=== PATIENT | female | born 1990 | race Two or more races ===

== ENCOUNTER 2017-05-25 14:21 | Emergency (ER) | payer MEDICAID ==
[~2017-05-25] VITALS: Ht 160 cm; Wt 57.6 kg
[~2017-05-25 14:21] MED LIST: ACETAMINOPHEN325 M1 ORAL; ACYCLOVIR400 MG ORAL; ALBUTEROL SULF8.5 GM INH; AMOXICILLIN500 MG ORAL; BENADRYL25 M3 PO; COLACE100 MG ORAL; NKM; PROMETHAZINE-C118 M1 ORAL; TRIAMCINOLONE A60 ML TP
[2017-05-25 14:39] VITALS: BP 116/75
--- NOTE | 2017-05-25 15:09 | Emergency Room Report ---
History of Present Illness General Chief Complaint: General Complaint Source: Patient Present Illness HPI 26-year-old female presents to the emergency department complaining of pressure in the left maxillary and frontal sinus in addition to nasal congestion, numbness feeling over the sinuses or the left side, and tightness in the upper back and neck. Patient denies fevers or chills. Patient denies recent illness denies cough. Patient reports recent dental procedure on the right side of the upper mouth. Patient denies acute onset of symptoms. Patient also reports pressure and popping in the left ear. Patient states that sometimes the pressure in the sinuses will clear however majority of the times she is congested. denies imbalance, tinnitus, or jaw pain. Denies purulent drainage, denies trauma. Denies CP, Palpitations, LOC, AMS, dizziness, Changes in Vision, Sensation, paresthesias, or a sudden severe headache. Allergies: Coded Allergies: No Known Allergies (Unverified , 10/08/14) Patient History Past Medical History: see triage record Past Surgical History: none Pertinent Family History: none Last Menstrual Period: 05/07/17 Now: No Immunizations: UTD Reviewed Nursing Documentation: PMH: Agreed, PSxH: Agreed Nursing Documentation-PMH Past Medical History: No Stated History Review of Systems All Other Systems: negative except mentioned in HPI Physical Exam Vital Signs Date Time Temp Pulse Resp B/P Pulse Ox O2 Delivery O2 Flow Rate FiO2 05/25/17 14:39 97.9 78 16 116/75 100 Room Air Sp02 EP Interpretation: reviewed, normal General Appearance: no apparent distress, alert, GCS 15, non-toxic Head: normocephalic, atraumatic Eyes: bilateral eye PERRL, bilateral eye normal inspection ENT: hearing grossly normal, normal pharynx, no angioedema, normal voice, TMs + canals normal, nasal congestion, other - no teeth tenderness to percussion, Neck: full range of motion, no meningismus, no bony tend, supple/symm/no masses Respiratory: chest non-tender, lungs clear, normal breath sounds, speaking full sentences Cardiovascular #1: regular rate, rhythm, no edema Musculoskeletal: back normal, gait/station normal, normal range of motion, non- tender Neurologic: alert, oriented x3, responsive, motor strength/tone normal, sensory intact, cerebellar normal, normal gait, speech normal, no pronator, other - no facial droop Psychiatric: judgement/insight normal, memory normal, mood/affect normal Skin: normal color, no rash, warm/dry, well hydrated Medical Decision Making PA Attestation Dr. Benoit is my supervising Physician whom patient management has been discussed with. Diagnostic Impression: Primary Impression: Encounter for medical screening examination Additional Impressions: Sinus congestion Neck strain Qualified Codes: S16.1XXA - Strain of muscle, fascia and tendon at neck level , initial encounter ER Course 26-year-old female presents to the emergency department complaining of pressure in the left maxillary and frontal sinus in addition to nasal congestion, numbness feeling over the sinuses or the left side, and tightness in the upper back and neck. Patient denies fevers or chills. Patient denies recent illness denies cough. Patient reports recent dental procedure on the right side of the upper mouth. Patient denies acute onset of symptoms. Patient also reports pressure and popping in the left ear. Patient states that sometimes the pressure in the sinuses will clear however majority of the times she is congested. Denies purulent drainage, denies trauma. Denies CP, Palpitations, LOC, AMS, dizziness, Changes in Vision, Sensation, paresthesias, or a sudden severe headache. Ddx considered but are not limited to URI, pneumonia, PE, strep pharyngitis, meningitis, sinusitis, dental abscess. Vital signs: Pt. is afebrile, the remaining VS are WNL H&PE are most consistent with nasal congestion- no meningeal signs, oropharynx is not involved, no evidence of bacterial infection at this time. , no teeth tenderness to percussion, ORDERS: none required at this time, the diagnosis is clinical ED INTERVENTIONS: None required at this time. I do not suspect an emergent condition at this time. with current presentation pt. is stable for close outpatient follow up. D/w pt. to return to ED with worsening or new symptoms. DISCHARGE: At this time pt. is stable for d/c to home. Will provide printed patient care instructions, and any necessary prescriptions. Care plan and follow up instructions have been discussed with the patient prior to discharge. Last Vital Signs Date Time Temp Pulse Resp B/P Pulse Ox O2 Delivery O2 Flow Rate FiO2 05/25/17 14:39 97.9 78 16 116/75 100 Room Air Disposition: HOME, SELF-CARE Condition: Stable Scripts Pseudoephedrine Hcl* (NEXAFED*) 30 Mg Tablet 30 MG ORAL Q6H Y for congestion for 3 Days, #12 TAB Prov: So Bryson 05/25/17 Ibuprofen* (MOTRIN*) 600 Mg Tablet 600 MG ORAL THREE TIMES A DAY, #20 TAB 0 Refills Prov: So Bryson 05/25/17 Patient Instructions: Medical Screening Exam, Muscle Strain, [id number] Additional Instructions: Take medications as directed. Follow up with a Primary Care Provider in 3-5 days, even if your symptoms have resolved. --Please review list of primary care clinics, if you do not already have a primary care provider Return sooner to ED if new symptoms occur, or current symptoms become worse. - Please note that this Emergency Department Report was dictated using [facility] technology software, occasionally this can lead to erroneous entry secondary to interpretation by the dictation equipment. So Bryson May 25, 2017 15:09
[2017-05-25] MEDS ORDERED: NEXAFED30 MG ORAL (15:11)
[2017-05-25] MEDS ORDERED: IBUPROFEN600 MG ORAL (15:11)
[2017-05-25 15:55] VITALS: BP 116/75
== END 2017-05-25 15:55 | disposition home or self-care (01) ==
LOC: EMR 15:52
DX: R09.81 Nasal congestion (principal); S16.1XXA Strain of muscle, fascia and tendon at neck level, initial encounter; X58.XXXA Exposure to other specified factors, initial encounter; Y92.9 Unspecified place or not applicable
CPT/HCPCS: 99284

== ENCOUNTER 2017-05-29 15:15 | Emergency (ER) | payer MEDICAID ==
[~2017-05-29] VITALS: Ht 160 cm; Wt 57.6 kg
[~2017-05-29 15:15] MED LIST changes: +IBUPROFEN600 MG ORAL; +NEXAFED30 MG ORAL
[2017-05-29 15:23] VITALS: BP 132/87
--- NOTE | 2017-05-29 15:59 | Emergency Room Report ---
History of Present Illness General Chief Complaint: General Complaint Source: Patient Present Illness HPI Is a 26-year-old female who presented after increased left-sided numbness. Patient gradual onset of symptoms over the past 2 weeks. Patient reported having intermittent headache this is worse primarily in the mornings. She reported having some left eye pain. The patient stated that she had been having some numbness which included her face as well as her left arm and left leg. Patient had previously been seen emergency department for similar symptoms. She denied any fever. She had not been vomiting. Allergies: Coded Allergies: No Known Allergies (Unverified , 10/08/14) Patient History Past Medical History: see triage record Last Menstrual Period: 05/03/17 Reviewed Nursing Documentation: PMH: Agreed, PSxH: Agreed Nursing Documentation-PMH Past Medical History: No Stated History Review of Systems All Other Systems: negative except mentioned in HPI Physical Exam Vital Signs Date Time Temp Pulse Resp B/P Pulse Ox O2 Delivery O2 Flow Rate FiO2 05/29/17 15:23 97.9 81 18 132/87 100 Room Air Sp02 EP Interpretation: reviewed, normal General Appearance: normal inspection, well appearing, no apparent distress, alert, GCS 15 Head: atraumatic ENT: normal ENT inspection, hearing grossly normal, normal voice Neck: normal inspection, full range of motion, supple, no bony tend Respiratory: normal inspection, lungs clear, normal breath sounds, no respiratory distress, no retraction, no wheezing Cardiovascular #1: regular rate, rhythm, no edema Gastrointestinal: normal inspection, normal bowel sounds, non tender, soft, no guarding, no hernia Genitourinary: no CVA tenderness Musculoskeletal: normal inspection, back normal, normal range of motion Neurologic: normal inspection, alert, responsive, speech normal Psychiatric: normal inspection, judgement/insight normal, mood/affect normal Skin: normal inspection, normal color, no rash Medical Decision Making Diagnostic Impression: Primary Impression: Paresthesia ER Course Patient presented for left-sided numbness. Differential diagnosis included wasn 't limited to CVA, intracranial hemorrhage, multiple sclerosis, vitamin deficiency among others. The patient appears to have a small amount of hyperreflexia to the left side. CT imaging of the head read by radiologist showed no acute hemorrhage or CVA. The patient is advised that she would need outpatient MRI. The patient is advised neurology followup Labs Test 05/29/17 15:55 05/29/17 16:00 Urine HCG, Qualitative Negative Sodium Level 142 mEQ/L (135-145) Potassium Level 4.2 mEQ/L (3.4-4.9) Chloride Level 103 mEQ/L (98-107) Carbon Dioxide Level 28 mEQ/L (20-30) Anion Gap 11 (5-15) Blood Urea Nitrogen 7 mg/dL (7-23) Creatinine 0.8 mg/dL (0.5-0.9) Estimat Glomerular Filtration Rate > 60 mL/min (>60) Glucose Level 91 mg/dL (74-106) Calcium Level 9.9 mg/dL (8.6-10.2) White Blood Count 6.5 K/UL (4.8-10.8) Red Blood Count 4.50 M/UL (4.20-5.40) Hemoglobin 13.9 G/DL (12.0-16.0) Hematocrit 43.4 % (37.0-47.0) Mean Corpuscular Volume 96 FL (80-99) Mean Corpuscular Hemoglobin 30.9 PG (27.0-31.0) Mean Corpuscular Hemoglobin Concent 32.0 G/DL (32.0-36.0) Red Cell Distribution Width 11.1 % (11.6-14.8) Platelet Count 255 K/UL (150-450) Mean Platelet Volume 6.5 FL (6.5-10.1) Neutrophils (%) (Auto) 59.9 % (45.0-75.0) Lymphocytes (%) (Auto) 28.9 % (20.0-45.0) Monocytes (%) (Auto) 9.2 % (1.0-10.0) Eosinophils (%) (Auto) 0.8 % (0.0-3.0) Basophils (%) (Auto) 1.2 % (0.0-2.0) Last Vital Signs Date Time Temp Pulse Resp B/P Pulse Ox O2 Delivery O2 Flow Rate FiO2 05/29/17 15:23 97.9 81 18 132/87 100 Room Air Status: improved Disposition: HOME, SELF-CARE Condition: Stable Scripts Cyanocobalamin (Vitamin B-12) (Vitamin B-12) 500 Mcg Tab.subl 500 MCG SL QWEEK, #14 TAB Prov: Víctor Kessler 05/29/17 Referrals: [facility],REFERRING (PCP) Víctor Kessler May 29, 2017 15:59
[2017-05-29 16:20] LABS: BASOPHILS % (AUTO) 1.2 % (0.0-2.0); EOSINOPHILS % (AUTO) 0.8 % (0.0-3.0); LYMPHOCYTES % (AUTO) 28.9 % (20.0-45.0); MEAN CORPUSCULAR HEMOGLOBIN 30.9 PG (27.0-31.0); MEAN CORPUSCULAR VOLUME 96 FL (80-99); MEAN PLATELET VOLUME 6.5 FL (6.5-10.1); MONOCYTES % (AUTO) 9.2 % (1.0-10.0); NEUTROPHILS % (AUTO) 59.9 % (45.0-75.0); PLATELET COUNT 255 K/UL (150-450); RED CELL DISTRIBUTION WIDTH 11.1 % (11.6-14.8); WHITE BLOOD COUNT 6.5 K/UL (4.8-10.8)
--- NOTE | 2017-05-29 16:26 | Diagnostic Imaging Report ---
Indications: Head pain Technique: Continuous helical CT imaging of the brain was performed with automatic exposure control on a Siemens sensation [address] scanner. Axial and coronal images were reconstructed at 5 mm slice thickness and interval. CTDI volume(s): 70 mGy Total DLP: 1347 mGy-cm Findings: Comparison: None. Intracranial anatomy is unremarkable. No evidence of mass or hemorrhage, other attenuation abnormality, mass effect, midline shift, hydrocephalus or increased intracranial pressure. Bone window images are unremarkable. Visualized paranasal sinuses and mastoid air cells are clear. IMPRESSION: Negative noncontrast CT scan of the brain . This correlates with [facility] preliminary report. The CT scanner at [facility] is accredited by the [employer] and the scans are performed using protocols designed to limit radiation exposure to as low as reasonably achievable to attain images of sufficient resolution adequate for diagnostic evaluation.
[2017-05-29 16:29] LABS: ANION GAP 11 (5-15); CALCIUM 9.9 mg/dL (8.6-10.2); CARBON DIOXIDE 28 mEQ/L (20-30); CHLORIDE 103 mEQ/L (98-107); CREATININE 0.8 mg/dL (0.5-0.9); GLOMERULAR FILTRATION RATE > 60 mL/min (>60); HEMOLYSIS 5; POTASSIUM 4.2 mEQ/L (3.4-4.9); SODIUM 142 mEQ/L (135-145)
[2017-05-29] MEDS ORDERED: VITAMIN B-12500 MC3 SL (16:59)
[2017-05-29 17:19] VITALS: BP 117/78
== END 2017-05-29 17:19 | disposition home or self-care (01) ==
LOC: EMR 15:56
DX: R20.2 Paresthesia of skin (principal)
CPT/HCPCS: 36415; 70450; 80048; 81025; 85025; 99284

== ENCOUNTER 2017-08-21 16:21 | Emergency (ER) | payer MEDICAID ==
[~2017-08-21] VITALS: Ht 160 cm; Wt 59.0 kg
[~2017-08-21 16:21] MED LIST changes: +VITAMIN B-12500 MC3 SL
[2017-08-21 17:13] LABS: APPEARANCE,URINE CLEAR; KETONES,URINE NEGATIVE (NEGATIVE); LEUKOCYTE ESTERASE ,URINE NEGATIVE (NEGATIVE); NITRITE,URINE NEGATIVE (NEGATIVE); PH,URINE 8 (4.5-8.0); PROTEIN,URINE NEGATIVE (NEGATIVE); UROBILINOGEN,URINE NORMAL MG/DL (0.0-1.0)
[2017-08-21 17:18] LABS: EOSINOPHILS % (AUTO) 0.5 % (0.0-3.0); LYMPHOCYTES % (AUTO) 23.2 % (20.0-45.0); MEAN CORPUSCULAR HEMOGLOBIN 31.5 PG (27.0-31.0); MEAN CORPUSCULAR HGB CONC 32.3 G/DL (32.0-36.0); MEAN CORPUSCULAR VOLUME 98 FL (80-99); MEAN PLATELET VOLUME 6.8 FL (6.5-10.1); MONOCYTES % (AUTO) 7.1 % (1.0-10.0); NEUTROPHILS % (AUTO) 68.1 % (45.0-75.0); PLATELET COUNT 219 K/UL (150-450); RED BLOOD COUNT 4.44 M/UL (4.20-5.40); RED CELL DISTRIBUTION WIDTH 11.1 % (11.6-14.8); WHITE BLOOD COUNT 8.2 K/UL (4.8-10.8)
[2017-08-21 17:29] VITALS: BP 132/86
[2017-08-21 17:46] LABS: ALANINE AMINOTRANSFERASE 15 U/L (12-78); ALBUMIN/GLOBULIN RATIO 1.3 (1.0-2.7); ANION GAP 5 mmol/L (5-15); ASPARTATE AMINO TRANSFERASE 14 U/L (15-37); CALCIUM 9.6 MG/DL (8.5-10.1); CARBON DIOXIDE 31 MMOL/L (21-32); CHLORIDE 104 MMOL/L (98-107); CREATININE 0.8 MG/DL (0.55-1.30); GLOMERULAR FILTRATION RATE > 60 mL/min (>60); LIPASE 177 U/L (73-393); POTASSIUM 3.7 MMOL/L (3.5-5.1); SODIUM 140 MMOL/L (136-145); THYROID STIMULATING HORMONE 0.829 uiU/mL (0.360-3.740); TOTAL PROTEIN 7.9 G/DL (6.4-8.2)
[2017-08-21] MEDS ORDERED: MULTIVITAMINS1 EAC2 ORAL (18:11)
[2017-08-21 18:23] VITALS: BP 117/71
[2017-08-21 18:24] VITALS: BP 117/71
--- NOTE | 2017-08-21 21:45 | Emergency Room Report ---
History of Present Illness General Chief Complaint: General Complaint Source: Patient Present Illness HPI The patient is a 27-year-old female presenting for bilateral arm tremors, occasional blurred vision, headache, and occasional numbness and tingling to the hands. She was seen in this emergency department approximately 3 months prior for the same complaints. She states that there has been no improvement or worsening of the symptoms. She denies any known cause. She denies any medical history including anxiety disorder. She denies any recent stressors in her life. She denies any other symptoms including fever, chills, shortness of breath, chest pain, abdominal pain Allergies: Coded Allergies: No Known Allergies (Unverified , 10/08/14) Patient History Past Medical History: see triage record Pertinent Family History: none Last Menstrual Period: 08/02/17 Reviewed Nursing Documentation: PMH: Agreed, PSxH: Agreed Nursing Documentation-PMH Past Medical History: No Stated History Review of Systems All Other Systems: negative except mentioned in HPI Physical Exam Vital Signs Date Time Temp Pulse Resp B/P (MAP) Pulse Ox O2 Delivery O2 Flow Rate FiO2 08/21/17 16:24 97.9 99 18 132/86 100 Room Air Sp02 EP Interpretation: reviewed, normal General Appearance: no apparent distress, alert, GCS 15, non-toxic Head: normocephalic, atraumatic Eyes: bilateral eye normal inspection, bilateral eye PERRL, bilateral eye EOMI ENT: hearing grossly normal, normal pharynx, no angioedema, normal voice Neck: full range of motion, supple/symm/no masses Respiratory: chest non-tender, lungs clear, normal breath sounds, speaking full sentences Cardiovascular #1: regular rate, rhythm, no edema Musculoskeletal: back normal, gait/station normal, normal range of motion, non- tender Neurologic: normal inspection, alert, oriented x3, responsive, motor strength/ tone normal, sensory intact, normal gait, speech normal, other - no tremor Psychiatric: judgement/insight normal, memory normal, mood/affect normal, no suicidal/homicidal ideation Skin: normal color, no rash, warm/dry, well hydrated Lymphatic: no adenopathy Medical Decision Making PA Attestation Dr. Benoit is my supervising physician. Patient management was discussed with my supervising physician Diagnostic Impression: Primary Impression: Encounter for generalized patient complaints Additional Impression: Paresthesia ER Course The patient is a 27-year-old female presenting for bilateral arm tremors, occasional blurred vision, headache, and occasional numbness and tingling to the hands Differential diagnoses considered but not limited to: Anxiety disorder, depression, vitamin deficiency, neurologic disorder, malignancy, , among others PE: vitals WNL. NAD HEENT unremarkable. PERRL. EOMI. No exophthalmos. RRR Lungs CTA bilat Neuro exam unremarkable. All labs unremarkable. TSH WNL. CT head unremarkable. The patient was offered short-term treatment with Ativan but declined. 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 She agrees. ER precautions given Laboratory Tests Test 08/21/17 17:00 White Blood Count 8.2 K/UL (4.8-10.8) Red Blood Count 4.44 M/UL (4.20-5.40) Hemoglobin 14.0 G/DL (12.0-16.0) Hematocrit 43.3 % (37.0-47.0) Mean Corpuscular Volume 98 FL (80-99) Mean Corpuscular Hemoglobin 31.5 PG (27.0-31.0) H Mean Corpuscular Hemoglobin Concent 32.3 G/DL (32.0-36.0) Red Cell Distribution Width 11.1 % (11.6-14.8) L Platelet Count 219 K/UL (150-450) Mean Platelet Volume 6.8 FL (6.5-10.1) Neutrophils (%) (Auto) 68.1 % (45.0-75.0) Lymphocytes (%) (Auto) 23.2 % (20.0-45.0) Monocytes (%) (Auto) 7.1 % (1.0-10.0) Eosinophils (%) (Auto) 0.5 % (0.0-3.0) Basophils (%) (Auto) 1.0 % (0.0-2.0) Urine Color Pale yellow Urine Appearance Clear Urine pH 8 (4.5-8.0) Urine Specific Campbell 1.005 (1.005-1.035) Urine Protein Negative (NEGATIVE) Urine Glucose (UA) Negative (NEGATIVE) Urine Ketones Negative (NEGATIVE) Urine Occult Blood Negative (NEGATIVE) Urine Nitrite Negative (NEGATIVE) Urine Bilirubin Negative (NEGATIVE) Urine Urobilinogen Normal MG/DL (0.0-1.0) Urine Leukocyte Esterase Negative (NEGATIVE) Urine HCG, Qualitative Negative Sodium Level 140 MMOL/L (136-145) Potassium Level 3.7 MMOL/L (3.5-5.1) Chloride Level 104 MMOL/L (98-107) Carbon Dioxide Level 31 MMOL/L (21-32) Anion Gap 5 mmol/L (5-15) Blood Urea Nitrogen 7 mg/dL (7-18) Creatinine 0.8 MG/DL (0.55-1.30) Estimate Glomerular Filtration Rate > 60 mL/min (>60) Glucose Level 73 MG/DL (74-106) L Calcium Level 9.6 MG/DL (8.5-10.1) Total Bilirubin 0.3 MG/DL (0.2-1.0) Aspartate Amino Transferase (AST) 14 U/L (15-37) L Alanine Aminotransferase (ALT) 15 U/L (12-78) Alkaline Phosphatase 76 U/L (46-116) Total Protein 7.9 G/DL (6.4-8.2) Albumin 4.5 G/DL (3.4-5.0) Globulin 3.4 g/dL Albumin/Globulin Ratio 1.3 (1.0-2.7) Lipase 177 U/L (73-393) Thyroid Stimulating Hormone (TSH) 0.829 uiU/mL (0.360-3.740) Urine Opiates Screen Negative (NEGATIVE) Urine Barbiturates Screen Negative (NEGATIVE) Phencyclidine (PCP) Screen Negative (NEGATIVE) Urine Amphetamines Screen Negative (NEGATIVE) Urine Benzodiazepines Screen Negative (NEGATIVE) Urine Cocaine Screen Negative (NEGATIVE) Urine Marijuana (THC) Screen Negative (NEGATIVE) Lab Results Impression unremarkable CT/MRI/US Diagnostic Results CT/MRI/US Diagnostic Results : Imaging Test Ordered: CT head Impression unremarkable Last Vital Signs Date Time Temp Pulse Resp B/P (MAP) Pulse Ox O2 Delivery O2 Flow Rate FiO2 08/21/17 18:24 97.9 65 18 117/71 100 Room Air Status: improved Disposition: HOME, SELF-CARE Condition: Improved Scripts Multivitamins* (MULTIVITAMINS*) 1 Each Tablet 1 TAB ORAL DAILY, #30 TAB 0 Refills Prov: LIVIA DIMAS 08/21/17 Patient Instructions: Peripheral Neuropathy Additional Instructions: I discussed my findings with the patient. All questions and concerns have been answered. Treatment and medication compliance have been addressed. I advised the patient that they need to follow up with primary doctor as soon as possible. Return to ED if symptoms worsen, new symptoms arise, or if needed for any reason. Patient verbalized understanding of discharge instructions. LIVIA DIMAS Aug 21, 2017 21:45
--- NOTE | 2017-08-22 08:37 | Diagnostic Imaging Report ---
Indication: DIZZY Technique: Continuous helical CT scanning of the head was performed without intravenous contrast material. Axial and coronal 5 mm sections were generated. Radiation dose was minimized using automated exposure control Dose: Total Dose Length Product - DLP [address] Dose Index - CTDIvol(s) 70.38 mGy. Comparison: None Findings: The ventricular system is normal in size and configuration. There is no shift of midline structures. No abnormal extra-axial fluid collections are noted. There is no evidence of intracerebral bleeding. No other abnormal high or low density areas are noted within the brain. Visualized orbits and sinuses are unremarkable. The calvarium is intact. Mastoid at Impression: Normal CT scan of the head without contrast material. This agrees with the preliminary interpretation provided overnight by [facility] teleradiology service. The CT scanner at [facility] is accredited by the [employer] and the scans are performed using protocols designed to limit radiation exposure to as low as reasonably achievable to attain images of sufficient resolution adequate for diagnostic evaluation.
== END 2017-08-21 18:27 | disposition home or self-care (01) ==
LOC: EMR 16:39
DX: R20.2 Paresthesia of skin (principal); H53.8 Other visual disturbances; R51 Headache
CPT/HCPCS: 36415; 70450; 80053; 80306; 81003; 81025; 83690; 84443; 85025; 96360; 99284